=== PATIENT | female | born 2000 | race American Indian/Alaskan Native ===

== ENCOUNTER 2025-01-11 08:42 | Outpatient (REF) | payer OTHER, SELFPAY ==
--- NOTE | ~2025-01-11 | XR_ITS ---
EXAMINATION: XR ANKLE, RIGHT CLINICAL INFORMATION: M25.571 - Pain in right ankle and joints of right foot COMPARISON: None available. TECHNIQUE: AP, lateral, and mortise views of the right ankle. FINDINGS: There are 2 metallic K-wires through the medial malleolus into the tarsal bone. No acute cortical disruption or gross malalignment. No lytic or blastic lesions. No gross loosening. XR/XR ankle RT min 3V IMPRESSION: Status post arthrodesis medial malleolus. Electronically signed by: Nestor Castano MD 01/14/2025 09:04 AM EDT
== END 2025-01-11 08:43 | disposition home or self-care (01) ==
LOC: HO.HOSX 08:42
PROVIDERS: Visit Provider Physician Assistant
DX: M25.571 Pain in right ankle and joints of right foot (principal); M24.471 Recurrent dislocation, right ankle
CPT/HCPCS: 29515; 73610; 99202

== ENCOUNTER 2025-01-11 11:19 | Outpatient (AMB) | payer OTHER, SELFPAY ==
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
[2025-01-11 11:36] VITALS: BMI 35.9
== END 2025-01-11 12:59 | disposition home or self-care (01) ==
LOC: HO.HOS 11:20
PROVIDERS: Visit Provider Physician Assistant
DX: M24.471 Recurrent dislocation, right ankle (principal)
CPT/HCPCS: 29515; 99204

== ENCOUNTER → 2025-01-11 11:21 | Outpatient (BNV) | payer OTHER, SELFPAY | PROVIDERS: Visit Provider Radiology Diagnostic Radiology | DX: M25.571 Pain in right ankle and joints of right foot (principal) | CPT/HCPCS: 73610 ==

== ENCOUNTER 2025-06-05 08:47 | Outpatient (REF) | payer OTHER, SELFPAY ==
--- NOTE | ~2025-06-05 | XR_ITS ---
EXAMINATION: XR ANKLE 3 OR MORE VIEWS RIGHT HISTORY: M25.571 - Pain in right ankle and joints of right foot COMPARISON: Comparison is made with the prior examination dated 01/11/2025. FINDINGS: Three views of the right ankle are submitted. Osseous mineralization is normal. There is been interval removal of the previously seen K wires across the tibiotalar joint. There is a curvilinear osseous density adjacent to the medial malleolus which could represent an avulsion fracture fragment. The joint spaces are preserved. The soft tissues are unremarkable. XR/XR ankle RT min 3V IMPRESSION: Interval removal of K wires across the tibiotalar joint. Possible avulsion fracture fragment adjacent to the medial malleolus. Electronically signed by: Kj Torres MD 06/05/2025 09:34 AM EDT
--- OUTSIDE RECORDS SUMMARY | 2025-06-06 09:04 | XMS_ITS | Clinical Summary ---
Author Organization [facility] Address [address] [place] [address] Care Team Providers Care Director Project Management Name Role Phone Kassie Sheriff MD Primary Care Provider [phone] Wilmer Reynaga MD Unavailable [phone] Allergies No known active allergies Medications cholecalciferol, [...] it alone vs option to refer to [facility] to discuss management +/- surgery -- pt prefers to speak with [facility] Referral placed to Dr. Chou at [facility] [...] screening for STI (sexually transmitted infection) CYTOLOGY, [facility] Routine 03/28/2024 HEPATITIS C ANTIBODY Routine 11/01/2022 10:26 AM EST Routine screening for STI (sexually transmitted infection) from Last 3 Months or Most Recently Relevant to Health Maintenance Results * Chlamydia trac Probe, Cervical (03/28/2024 2:29 PM EDT) Cervical Chlamydia Probe negative 03/29/2024 2:06 PM EDT [facility] Cervical Chlamydia Probe Perf By Footnote 03/29/2024 2:06 PM EDT [facility] Comment: Test Performed by: [facility] [place] [address] [address] Specimen from genital system (specimen) 03/28/2024 2:29 PM EDT 03/28/2024 3:54 PM EDT us Wanda Krishna MD BODY FLUIDS AND STOOLS ORDERABLE S Final Result Performing Organization Address City/[facility]/ZIP Co de Phone Number [facility] [address] [place] [address] [facility] [address] [place] [phone] * Cytology, [facility] (PAP) (03/28/2024) 03/28/2024 03/29/2024 8:1 8 AM EDT us Wanda Krishna MD PATHOLOGY/CYTOLOGY ORDERABLES Fi nal Result Performing Organization Address [facility] Co de Phone Number [facility] [address] [place] [phone] * Hepatitis C Antibody (11/01/2022 10:26 AM EST) HCV Ab Qualitative Non Reac Non Reactive 11/01/2022 9:02 PM EST Blood specimen (specimen) 11/01/2022 10:26 AM EST 11/01/2022 5:50 PM EST us Clemente Burks MD LAB BLOOD ORDERABLES Fin al Result Performing Organization Address City/[facility]/ZIP Co de Phone Number [facility] [address] [place] [address] from Last 3 Months or Most Recently Relevant to Health Maintenance Insurance [place]ICAID [place] Member Subscriber Plan / Payer (Ef fective 2022-Present) Name:Bruce Alston Relation to Subscriber:Self Name:Bruce Alston Payer ID:[id number] Group ID:Not on file Type:Medicaid Address: [facility] [address] [place], [place] Care Teams Director Project Management Relationship Specialty Start Date End Date Kassie Sheriff MD [address] [place] [address] [address] [place] [address] PCP - General Internal Medicine 01/26/22 Wilmer Reynaga MD [address] [place] [address] [address] [place] [address] PCP - Resident Internal Medicine 04/23/23
== END 2025-06-05 08:48 | disposition home or self-care (01) ==
LOC: HO.HOSX 08:47
PROVIDERS: Visit Provider Physician Assistant
DX: M24.471 Recurrent dislocation, right ankle (principal); M25.571 Pain in right ankle and joints of right foot; Z98.890 Other specified postprocedural states; S93.401A Sprain of unspecified ligament of right ankle, initial encounter
CPT/HCPCS: 73610; 99212

== ENCOUNTER 2025-06-05 08:56 | Outpatient (AMB) | payer OTHER, SELFPAY ==
--- NOTE | 2025-06-05 09:03 | MHC.OFFVIS ---
Vital Signs 06/05/25 09:07 Height 4 ft 8 in Weight 160 lb BMI 35.9 Intake Visit Reasons: PO RT ankle, DOS 12/31/24 Intake Note: Familia is a 25 year old female who presents today for a follow up of right ankle status post surgical repair while in [place], DOS 12/31/24. At her last visit she was recommended to follow up in 2 weeks however patient returned home to [place] due to being out of school. Today patient reports pain at the medial aspect of ankle/foot, as well as sharp pain at the incision site. She complains of middle toe stiffness and numbness and tingling with prolong standing. Finds little relief with ibuprofen. Allergies No Known Allergies Allergy (Verified 06/05/25 09:12) Medication List - Last Reconciled 06/05/25 by Hawa Herrera PA-C No Known Home Meds HPI HPI PO RT ankle, DOS 12/31/24: Details: 25 yo female returns to the office today for f/u right ankle injury. She is sp ankle surgery 12/31/24 in [place], she returned to [place] and on 01/31/25 she had the pins removed. She states she was instructed to attend PT and attended 2 visits. She currently living is [place] for school. C/o ongoing akle pain along the medial and anterolateral aspect of the ankle. She states the pain gets worse throughout the day. She has started working and being on their feet all day causes pain. [facility] Surgical History (Updated 06/05/25 @ 09:10 by Hawa Herrera PA-C) History of ankle surgery Social History Patient Tobacco Use Status: Never used Tobacco Current occupational status: employed Current occupation: [employer] Review of Systems Const All systems reviewed & are unremarkable except as noted in HPI and below Physical Exam Vital Signs: BMI result Body Mass Index 35.9 Extrem Other: Right ankle is normal to inspection surgical scars are well healed she has no swelling. No tenderness to palpation over the medial or lateral aspect of the ankle. There is some hypersensitivity over the incision sites. No instability with anterior drawer. Neurovascularly intact. Results Reviewed Results Reviewed: X-rays of the right ankle obtained in the office today and reviewed by me show evidence of remove hardware. Ankle mortise intact. Joint space well-preserved. Assessment & Plan Assessment & Plan (1) Recurrent dislocation, right ankle: Code(s): M24.471 - Recurrent dislocation, right ankle Category: Medical (2) History of ankle surgery: Comment: RT ankle, DOS 12/31/24 [place] Code(s): Z98.890 - Other specified postprocedural states Category: Surgical Plan At this time I encouraged the patient to begin physical therapy to work on range of motion gentle strengthening proprioceptive training. I explained to the patient over time there is some scar tissue that develops along with stiffness which would limit their ability to perform normal activities due to weakness and stiffness. I also had the patient fit for a lace-up ankle brace which was provided in the office today. The patient will wear this with activities especially prolonged standing and walking. Under the prescription for naproxen was sent to the pharmacy to take twice a day for acute flare-ups. Reassurance given this will take approximately 8-12 weeks for full recovery and they need to continue with home exercise program. If there is any questions or concerns the patient can follow up with me otherwise follow up as needed. Orders: Orders PT Evaluation and Treatment Today M24.471 - Recurrent dislocation, right ankle, Z98.890 - Other specified postprocedural states XR ankle RT min 3V Today M25.571 - Pain in right ankle and joints of right foot Medications: New naproxen 500 mg PO BID 60 tabs 3RF 30 days S93.409A - Sprain of unspecified ligament of unspecified ankle, initial encounter Coding Level of Care Code Est Pt Level 3 (04364) Complex EM visit Add On G2211 Diagnoses Recurrent dislocation, right ankle M24.471 History of ankle surgery Z98.890
[2025-06-05 09:07] VITALS: BMI 35.9
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
== END 2025-06-05 10:05 | disposition home or self-care (01) ==
LOC: HO.HOS 08:57
PROVIDERS: Visit Provider Physician Assistant
DX: M24.471 Recurrent dislocation, right ankle (principal); Z98.890 Other specified postprocedural states
CPT/HCPCS: 99213

== ENCOUNTER → 2025-06-05 09:01 | Outpatient (BNV) | payer OTHER, SELFPAY | PROVIDERS: Visit Provider Radiology Diagnostic Radiology | DX: M25.571 Pain in right ankle and joints of right foot (principal) | CPT/HCPCS: 73610 ==

== ENCOUNTER 2025-09-25 11:19 | Outpatient (RCR) | payer OTHER, SELFPAY ==
--- NOTE | 2025-07-09 09:55 | MHC.PT.EP ---
[facility] [place] Office [place] Office [place] Office [address] Roland Schneider [address] [phone] F: [phone] F: [phone] F: [phone] F: [phone] Physical Therapy Plan of Care Date of Evaluation: 07/09/25 Date of Surgery: 12/31/24 Diagnosis: recurrent dislocation R ankle other specified postprocedural states *Hx of R ankle surgery 12/31/24 open reduction perc pinning (pins removed) Assessment: 25 y/o person s/p R ankle open reduction percutaneous pinning 12/31/24 with hardware removed later. Pt was in a boot for 6-12 weeks and had 2 visits of PT. Currently reports pain and difficulty with standing, walking, squatting, and stairs. Ankle feels stiff. Examination shows impaired gait pattern, poor squat mechanics, decreased R ankle/toe mobility, decreased R LE strength, pain, decreased gastroc length, and altered mechanics. Recommend PT 2x/week for 8 weeks to address impairments, implement HEP, and optimize functional mobility. Frequency and Duration: The patient will be seen 2x/week for 8 weeks Short Term Goals: 4 weeks I with HEP Pt will demonstrate 10 R ankle dorsiflexion to facilitate gait Fci Goals: 8 weeks I with HEP and self management of sx Pt will be able to ascend/ descend stairs in step through pattern with one railing Pt will be able to ambulate > 40 minutes with pain < 3/10 with improved weightbearing through R foot and terminal stance Improve LEFS to 50/80 IR 31/80 Treatment Plan: Modalities to reduce pain, spasms and effusion. Manual therapy to restore motion and function. Therapeutic exercise to improve strength and flexibility. Neuromuscular re-education for posture and balance. Therapeutic activities to return to functional activities of daily living. Electronically signed by: Sima Reno PT Please sign and return to therapist. Thank you for your referral.
--- NOTE | 2025-09-25 12:02 | MHC.PT.DC ---
[facility] [place] Office [place] Office [place] Office [address] Roland Schneider [address] [phone] F: [phone] F: [phone] F: [phone] F: [phone] Physical Therapy Discharge Report Diagnosis: recurrent dislocation R ankle other specified postprocedural states *Hx of R ankle surgery 12/31/24 open reduction perc pinning (pins removed) Date of Surgery: 12/31/24 Date of Evaluation: 07/09/25 Date of Discharge: 09/25/25 Treatments to Date: 18 Cancellations to Date: 1 No Shows to Date: 1 Discharge Status: Achieved Goals Improved Function Independent with HEP Discharge Summary: Overall pt has made excellent progress with improved gait pattern, balance, ROM, and strength. Pt will still have occasional flare-ups of increased pain but educated on self management. LEFS improved to 65/80. At this time pt is appropriate for d/c to I HEP Electronically signed by: Sima Reno PT Please sign and return to therapist. Thank you for your referral.
== END 2025-09-25 12:02 | disposition home or self-care (01) ==
LOC: HO.PT 11:19
PROVIDERS: Visit Provider Physician Assistant
DX: M24.471 Recurrent dislocation, right ankle (principal); Z98.890 Other specified postprocedural states
CPT/HCPCS: 97110; 97112; 97140; 97161; 97530